=== PATIENT | male | born 1960 ===

== ENCOUNTER 2019-02-25 20:09 | Observation (INO) | payer MEDICAID, OTHER ==
[2019-02-25 20:10] VITALS: BMI 27.4
--- NOTE | 2019-02-25 20:38 | ED PDOC ---
Arrival/HPI - General Chief Complaint: Syncope Time Seen by Provider: 02/25/19 20:10 Historian: Patient - History of Present Illness Narrative History of Present Illness (Text): 02/25/19 20:15 A 58 year old male, whose past medical history includes hypertension, presents to the emergency department following a syncopal event while at a constitution party at home earlier tonight. Patient states he does not remember what happened other than feeling dizzy and waking up on the floor shortly thereafter. Patient reports he hit his head and is complaining of a headache post event. Patient denies any neck pain, back pain, or any other complaints. Patient reports no history of any chest pain or shortness of breath. PMD: Melanie Araujo Time/Duration: 4-6 hours Symptom Onset: Sudden Symptom Course: Unchanged Activities at Onset: Light Context: Home Past Medical History - Provider Review Nursing Documentation Reviewed: Yes - Infectious Disease Hx of Infectious Diseases: None - Tetanus Immunization Tetanus Immunization: Unknown - Cardiac Hx Hypertension: Yes - Pulmonary Hx Asthma: Yes - Musculoskeletal/Rheumatological Hx Falls: No - Genitourinary/Gynecological Other/Comment: HERNIA REPAIR - Psychiatric Hx Depression: No Hx Emotional Abuse: No Hx Physical Abuse: No Hx Substance Use: No - Past Surgical History Past Surgical History: No Previous - Suicidal Assessment Feels Threatened In Home Enviroment: No Family/Social History - Physician Review Nursing Documentation Reviewed: Yes Family/Social History: No Known Family HX Smoking Status: Never Smoked Hx Alcohol Use: Yes Hx Substance Use: No Allergies/Home Meds Allergies/Adverse Reactions: Allergies apple Allergy (Verified 02/26/19 00:20) ITCHING Home Medications: Home Meds Medication Instructions Recorded Confirmed Lisinopril [Zestril] 1 tab PO DAILY 02/25/19 02/25/19 Review of Systems - Physician Review All systems were reviewed & negative as marked: Yes - Review of Systems Respiratory: absent: SOB Cardiovascular: absent: Chest Pain Musculoskeletal: absent: Back Pain, Neck Pain Neurological: Headache Physical Exam Vital Signs Reviewed: Yes Vital Signs Temp Pulse Resp BP Pulse Ox 02/25/19 20:16 98.4 F 86 18 145/76 97 Temperature: Afebrile Blood Pressure: Normal Pulse: Regular Respiratory Rate: Normal Appearance: Positive for: Well-Appearing Mental Status: Positive for: Alert and Oriented X 3 Finger Stick Blood Glucose: 106 - Systems Exam Head: Present: Atraumatic, Normocephalic, Contusion (contusion to left parietal and left forehead region) Pupils: Present: PERRL Extroacular Muscles: Present: EOMI Conjunctiva: Present: Normal Mouth: Present: Moist Mucous Membranes Respiratory/Chest: Present: Clear to Auscultation, Good Air Exchange. No: Respiratory Distress, Accessory Muscle Use Cardiovascular: Present: Regular Rate and Rhythm, Normal S1, S2. No: Murmurs Abdomen: No: Tenderness, Distention, Peritoneal Signs Back: Present: Normal Inspection. No: Midline Tenderness Upper Extremity: Present: Normal Inspection. No: Cyanosis, Edema Lower Extremity: Present: Normal Inspection. No: Edema Neurological: Present: GCS=15, CN II-XII Intact, Speech Normal Skin: Present: Warm, Dry, Normal Color. No: Rashes Psychiatric: Present: Alert, Oriented x 3, Normal Insight, Normal Concentration Medical Decision Making ED Course and Treatment: 02/25/19 20:15 Impression: 58 year old male presenting to the emergency room following a syncopal event. Plan: -- Head CT without contrast -- Labs -- CBC -- COAGs -- Chest X-ray -- Reassess and disposition Prior Visits: Notes and results from previous visits were reviewed. Progress Notes: 02/25/19 20:35 EKG: Ordered, reviewed, and independently interpreted the EKG. Rate : 90 BPM Rhythm : NSR Interpretation : No ST-segment elevations or depressions. 02/25/19 22:16 Reviewed radiology, Chest X-ray shows no acute processes. CT Head: BRAIN: No CT evidence for acute intracranial abnormality. No evidence for acute territorial infarction. No evidence for acute intracranial hemorrhage. No midline shift or mass effect. VENTRICLES: No hydrocephalus. ORBITS: The orbits are unremarkable. SINUSES AND MASTOIDS: The paranasal sinuses and mastoid air cells are clear. BONES: No fracture. SOFT TISSUES: 1.2 cm fat density lesion in the left frontal scalp on series 2, image 18. This most likely represents lipoma or similar. Please correlate clinically. IMPRESSION: 1. 1.2 cm fat density lesion in the left frontal scalp on series 2, image 18. This most likely represents lipoma or similar. Please correlate clinically. 2. No CT evidence for acute intracranial abnormality. Electronically signed on Feb 25, 2019 9:48:15 PM EDT by: Elian Diaz M.D., M.B.A., Certified By [employer] Trained MRI and CT Specialist 02/25/19 22:26 Case discussed with medical office representative workers' compensation mediator, who is aware and agrees with plan. 02/25/19 22:[address] Ochoa, who is aware and agrees with plan. Accepts pt in to hospitalist service. Pt will go to Telemetry observation for syncope. - RAD Interpretation Radiology Orders: 02/25/19 20:26 CHEST PORTABLE [RAD] Stat 02/25/19 20:27 HEAD W/O CONTRAST [CT] Stat - Scribe Statement The provider has reviewed the documentation as recorded by the Yuko Rodas All medical record entries made by the Scribe were at my direction and personally dictated by me. I have reviewed the chart and agree that the record accurately reflects my personal performance of the history, physical exam, medical decision making, and the department course for this patient. I have also personally directed, reviewed, and agree with the discharge instructions and disposition.\ Disposition/Present on Arrival - Present on Arrival Any Indicators Present on Arrival: No History of DVT/PE: No History of Uncontrolled Diabetes: No Urinary Catheter: No History of Decub. Ulcer: No History Surgical Site Infection Following: None - Disposition Have Diagnosis and Disposition been Completed?: Yes Diagnosis: Syncope Disposition: HOSPITALIZED Disposition Time: 22:30 Condition: STABLE
[2019-02-25 20:39] LABS: HEMOGLOBIN 16.2 g/dL (14.0-18.0); MEAN CELL VOLUME 86.3 fl (80.0-105.0); MEAN CORPUSCULAR HEMOGLOBIN 29.6 pg (25.0-35.0); MEAN CORPUSCULAR HGB CONC 34.3 g/dl (31.0-37.0); MEAN PLATELET VOLUME 9.9 fl (7.0-11.0); RBC 5.47 10^6/uL (3.5-6.1); WHITE BLOOD COUNT 8.5 10^3/uL (4.5-11.0)
[2019-02-25 20:43] LABS: ALB/GLOB RATIO 1.4 (1.1-1.8); ALBUMIN 4.4 g/dL (3.0-4.8); BLOOD UREA NITROGEN 18 mg/dL (7-21); CALCIUM 9.1 mg/dL (8.4-10.5); GFR NON-AFRICAN AMERICAN > 60
[2019-02-25 20:52] LABS: INR 1.01; PARTIAL THROMBOPLASTIN TIME 32.9 Seconds (26.9-38.3); PROTHROMBIN TIME 11.2 SECONDS (9.4-12.5)
[2019-02-25 20:55] LABS: TROPONIN I < 0.01 ng/mL
[2019-02-25 20:59] LABS: ALT/SGPT 55 U/L (7-56); AST/SGOT 41 U/L (17-59)
--- NOTE | 2019-02-25 23:53 | CP.PCM.HP ---
<AnilaAyshamarissa - Last Filed: 02/26/19 05:27> History of Present Illness - History of Present Illness History of Present Illness: PGY1 Medicine History and Physical Exam Note for Dr. Ochoa Patient is a 58-year-old M with PMH HTN who presents to [facility] after having experienced a syncopial event during dinner earlier this evening. Patient reports he was sitting at the dinner table with his family, laughing with such intensity, that it caused him to "pass out." Patient's at bedside states that the Patient was shaking, his eyes rolled back, and then he woke up within seconds. Patient says he felt normal following the event. Patient denies feeling anything unusual (dizzy, lightheaded, palpitations, and/or chest pain) prior to syncopizing. After waking up, the Patient denies any tongue biting, bowel/bladder loss, muscular pain, drowsiness, and/or dizziness. Patient denies any previous events, however he admits to laughing so hard to the point where he "turns red in the face." PMH: HTN, hernia, hospitalization due to PNA PSH: Neck surgery (lipoma removal?) Social Hx: ETOH 2 beers on occasion (socially); Denies current/previous tobacco; Denies recreational drugs Family Hx: Sister: heart murmur Allergies: NKDA Medications: Lisinopril 5mg po daily PMD: Dr. Cornell Present on Admission - Present on Admission Any Indicators Present on Admission: No History of DVT/PE: No History of Uncontrolled Diabetes: No Urinary Catheter: No Decubitus Ulcer Present: No Review of Systems - Review of Systems All systems: reviewed and no additional remarkable complaints except (as per HPI) Past Patient History - Infectious Disease Hx of Infectious Diseases: None - Tetanus Immunizations Tetanus Immunization: Unknown - Past Social History Smoking Status: Never Smoked - CARDIAC Hx Hypertension: Yes - PULMONARY Hx Asthma: Yes - MUSCULOSKELETAL/RHEUMATOLOGICAL Hx Falls: No - GENITOURINARY/GYNECOLOGICAL Other/Comment: HERNIA REPAIR - PSYCHIATRIC Hx Depression: No Hx Emotional Abuse: No Hx Physical Abuse: No Hx Substance Use: No Meds Allergies/Adverse Reactions: Allergies Allergy/AdvReac Type Severity Reaction Status Date / Time apple Allergy ITCHING Verified 02/26/19 00:20 Physical Exam - Constitutional Appears: Non-toxic, No Acute Distress - Head Exam Head Exam: ATRAUMATIC, NORMAL INSPECTION, NORMOCEPHALIC - Eye Exam Eye Exam: EOMI, Normal appearance, PERRL Pupil Exam: NORMAL ACCOMODATION - ENT Exam ENT Exam: Mucous Membranes Moist, Normal Exam - Neck Exam Neck exam: Positive for: Normal Inspection. Negative for: Lymphadenopathy, Tenderness, Thyromegaly - Respiratory Exam Respiratory Exam: Clear to Auscultation Bilateral, NORMAL BREATHING PATTERN. absent: Accessory Muscle Use, Prolonged Expiratory Phase, Rales, Rhonchi, Wheezes, Respiratory Distress - Cardiovascular Exam Cardiovascular Exam: REGULAR RHYTHM, +S1, +S2. absent: Bradycardia, Tachycardia, Diastolic murmur, Gallop, Irregular Rhythm, Systolic Murmur - GI/Abdominal Exam GI & Abdominal Exam: Normal Bowel Sounds, Soft. absent: Tenderness - Extremities Exam Extremities exam: Positive for: full ROM, normal inspection. Negative for: joint swelling, pedal edema, tenderness - Neurological Exam Neurological exam: Alert, CN II-XII Intact, Oriented x3 - Psychiatric Exam Psychiatric exam: Normal Affect, Normal Mood - Skin Skin Exam: Dry, Intact, Normal Color, Warm Results - Vital Signs Recent Vital Signs: Last Vital Signs Temp 98.4 F 02/25/19 20:16 Pulse 78 02/25/19 22:34 Resp 18 02/25/19 22:34 BP 119/88 02/25/19 22:34 Pulse Ox 95 02/25/19 22:34 - Labs Result Diagrams: 02/25/19 20:15 02/25/19 20:15 Labs: Laboratory Results - last 24 hr 02/25/19 02/25/19 02/25/19 20:15 20:15 20:15 WBC 8.5 RBC 5.47 Hgb 16.2 Hct 47.2 MCV 86.3 MCH 29.6 MCHC 34.3 RDW 13.0 Plt Count 380 MPV 9.9 PT 11.2 INR 1.01 APTT 32.9 Sodium 138 Potassium 4.1 Chloride 101 Carbon Dioxide 27 Anion Gap 15 BUN 18 Creatinine 1.1 Est GFR ( Amer) > 60 Est GFR (Non-Af Amer) > 60 POC Glucose (mg/dL) Random Glucose 94 Calcium 9.1 Total Bilirubin 0.4 AST 41 ALT 55 Alkaline Phosphatase 72 Lactate Dehydrogenase 489 Total Creatine Kinase 225 Troponin I < 0.01 Total Protein 7.5 Albumin 4.4 Globulin 3.2 Albumin/Globulin Ratio 1.4 02/25/19 20:17 WBC RBC Hgb Hct MCV MCH MCHC RDW Plt Count MPV PT INR APTT Sodium Potassium Chloride Carbon Dioxide Anion Gap BUN Creatinine Est GFR ( Amer) Est GFR (Non-Af Amer) POC Glucose (mg/dL) 106 Random Glucose Calcium Total Bilirubin AST ALT Alkaline Phosphatase Lactate Dehydrogenase Total Creatine Kinase Troponin I Total Protein Albumin Globulin Albumin/Globulin Ratio Assessment & Plan - Assessment and Plan (Free Text) Assessment: S/P Syncope - Likely 2/2 vaso-vagal - Cardiology consulted; Dr. Jenkins - CT head without contrast: negative for acute intracranial abnormalities - Troponin negative x1 - F/U Serial troponin - EKG: NSR 90 bpm - Chest X-ray shows no acute processes - F/U ECHO - F/U UDS - F/U Folate, vitamin B12, Hemoglobin A1C, CMP, Mg, Phos, TSH, CBC - Neuro checks Q4 - Fall precautions - Seizure precautions - Orthostatic vitals - PT/OT eval and treat - Monitor HTN - Hold home meds at this time - Normotensive PPx: - DVT: Lovenox - GI: not indicated at this time Patient seen and case discussed with Dr. Gabriela High PGY1 <Vijaya Ochoa - Last Filed: 02/26/19 06:16> Results - Vital Signs Recent Vital Signs: Last Vital Signs Temp 98.2 F 02/25/19 23:44 Pulse 84 02/25/19 23:44 Resp 18 02/25/19 23:44 BP 120/71 02/25/19 23:44 Pulse Ox 95 02/25/19 23:44 - Labs Result Diagrams: 02/25/19 20:15 02/25/19 20:15 Labs: Laboratory Results - last 24 hr 02/25/19 02/25/19 02/25/19 20:15 20:15 20:15 WBC 8.5 RBC 5.47 Hgb 16.2 Hct 47.2 MCV 86.3 MCH 29.6 MCHC 34.3 RDW 13.0 Plt Count 380 MPV 9.9 PT 11.2 INR 1.01 APTT 32.9 Sodium 138 Potassium 4.1 Chloride 101 Carbon Dioxide 27 Anion Gap 15 BUN 18 Creatinine 1.1 Est GFR ( Amer) > 60 Est GFR (Non-Af Amer) > 60 POC Glucose (mg/dL) Random Glucose 94 Calcium 9.1 Total Bilirubin 0.4 AST 41 ALT 55 Alkaline Phosphatase 72 Lactate Dehydrogenase 489 Total Creatine Kinase 225 Troponin I < 0.01 Total Protein 7.5 Albumin 4.4 Globulin 3.2 Albumin/Globulin Ratio 1.4 02/25/19 02/26/19 20:17 02:00 WBC RBC Hgb Hct MCV MCH MCHC RDW Plt Count MPV PT INR APTT Sodium Potassium Chloride Carbon Dioxide Anion Gap BUN Creatinine Est GFR ( Amer) Est GFR (Non-Af Amer) POC Glucose (mg/dL) 106 Random Glucose Calcium Total Bilirubin AST ALT Alkaline Phosphatase Lactate Dehydrogenase Total Creatine Kinase Troponin I < 0.01 Total Protein Albumin Globulin Albumin/Globulin Ratio Attending/Attestation - Attestation I have personally seen and examined this patient.: Yes I have fully participated in the care of the patient.: Yes I have reviewed all pertinent clinical information: Yes Notes (Text): 02/26/19 06:16 Seen and examined. discussed with resident. A&P as above.
[2019-02-26 06:58] LABS: ALB/GLOB RATIO 1.4 (1.1-1.8); ALBUMIN 3.8 g/dL (3.0-4.8); ALT/SGPT 52 U/L (7-56); AST/SGOT 36 U/L (17-59); BLOOD UREA NITROGEN 20 mg/dL (7-21); CALCIUM 8.5 mg/dL (8.4-10.5); GFR NON-AFRICAN AMERICAN > 60
[2019-02-26 07:07] LABS: BASO # 0.02 K/mm3 (0.0-2.0); BASO % 0.3 % (0.0-3.0); EOS # 0.3 (0.0-0.7); EOS % 3.5 % (1.5-5.0); HEMOGLOBIN 14.8 g/dL (14.0-18.0); LYMPH # 2.1 (1.2-3.4); LYMPH % 29.1 % (22.0-35.0); MEAN CELL VOLUME 86.7 fl (80.0-105.0); MEAN CORPUSCULAR HGB CONC 33.5 g/dl (31.0-37.0); MEAN PLATELET VOLUME 9.9 fl (7.0-11.0); MONO # 0.8 (0.1-0.6); RBC 5.1 10^6/uL (3.5-6.1); RED CELL DISTRIBUTION WIDTH 13.2 % (11.5-14.5); WHITE BLOOD COUNT 7.2 10^3/uL (4.5-11.0)
--- NOTE | 2019-02-26 08:19 | CT ---
Date of service: 02/25/2019 PROCEDURE: CT HEAD WITHOUT CONTRAST. HISTORY: syncope COMPARISON: None available. TECHNIQUE: Axial computed tomography images were obtained through the head/brain without intravenous contrast. Radiation dose: Total exam DLP = 976.25 mGy-cm. This CT exam was performed using one or more of the following dose reduction techniques: Automated exposure control, adjustment of the mA and/or kV according to patient size, and/or use of iterative reconstruction technique. FINDINGS: HEMORRHAGE: No intracranial hemorrhage. BRAIN: No mass effect or edema. No atrophy or chronic microvascular ischemic changes. VENTRICLES: Unremarkable. No hydrocephalus. CALVARIUM: Unremarkable. PARANASAL SINUSES: Unremarkable as visualized. No significant inflammatory changes. MASTOID AIR CELLS: Unremarkable as visualized. No inflammatory changes. OTHER FINDINGS: The report concurs with the preliminary [facility] report IMPRESSION: Normal CT of the Head.
--- NOTE | 2019-02-26 09:11 | CARD ---
APPROVED REPORT Date of service: 02/25/2019 EKG Measurement Heart [id number] <Conclusion> Normal sinus rhythm Normal Electrocardiogram
[2019-02-26] MEDS: Enoxaparin 40 mg Syringe SC SCH (09:30)
[2019-02-26 09:40] LABS: BARBITURATES, UR NEGATIVE (NEGATIVE); BENZODIAZEPINES, UR NEGATIVE (NEGATIVE); OPIATES, UR NEGATIVE (NEGATIVE); PHENCYCLIDINE, UR NEGATIVE (NEGATIVE)
--- NOTE | 2019-02-26 10:29 | RAD ---
Date of service: 02/25/2019 HISTORY: syncope COMPARISON: No prior. TECHNIQUE: 1 view obtained. FINDINGS: LUNGS: No active pulmonary disease. PLEURA: No significant pleural effusion identified, no pneumothorax apparent. CARDIOVASCULAR: No aortic atherosclerotic calcification present. Normal cardiac size. No pulmonary vascular congestion. OSSEOUS STRUCTURES: No significant abnormalities. VISUALIZED UPPER ABDOMEN: Normal. OTHER FINDINGS: None. IMPRESSION: No active disease.
--- NOTE | 2019-02-26 11:23 | RAD ---
Date of service: 02/26/2019 HISTORY: syncope, cardiomegaly COMPARISON: 02/25/2019 TECHNIQUE: Chest PA and lateral views FINDINGS: LUNGS: There is atelectasis at the right lung base. There is elevation of the right hemidiaphragm. PLEURA: No significant pleural effusion identified. No pneumothorax apparent. CARDIOVASCULAR: No aortic atherosclerotic calcification present. Normal cardiac size. No pulmonary vascular congestion. OSSEOUS STRUCTURES: No significant abnormalities. VISUALIZED UPPER ABDOMEN: Normal. OTHER FINDINGS: None. IMPRESSION: There is atelectasis at the right lung base. There is elevation of the right hemidiaphragm.
[2019-02-26 12:09] LABS: FOLATE 8.2 ng/mL
--- NOTE | 2019-02-26 12:47 | CP.PCM.PN ---
Subjective - Date & Time of Evaluation Date of Evaluation: 02/26/19 Time of Evaluation: 12:46 - Subjective Subjective: PGY-1 Medicine progress note for Dr. Mar Patient was seen and examined at bedside. No acute events overnight. He denies fevers, chills, shortness of breath, chest pain, abdominal pain, nausea, vomiting, diarrhea, or any other symptoms. Objective - Vital Signs/Intake and Output Vital Signs (last 24 hours): Temp Pulse Resp BP Pulse Ox 97.8 F 64 18 133/84 97 02/26/19 08:16 02/26/19 08:16 02/26/19 08:16 02/26/19 08:16 02/26/19 08:16 - Medications Medications: Current Medications Acetaminophen (Tylenol 325mg Tab) 650 mg PO Q6H PRN PRN Reason: Pain, moderate (4-7) Last Admin: 02/26/19 12:22 Dose: 650 mg Enoxaparin Sodium (Lovenox) 40 mg SC DAILY VIPIN; Protocol Last Admin: 02/26/19 09:30 Dose: 40 mg - Labs Labs: 02/26/19 06:00 02/26/19 06:00 PT 11.2 SECONDS (9.4-12.5) 02/25/19 20:15 INR 1.01 02/25/19 20:15 APTT 32.9 Seconds (26.9-38.3) 02/25/19 20:15 - Additional Findings Additional findings: - Constitutional Appears: Non-toxic, No Acute Distress - Head Exam Head Exam: ATRAUMATIC, NORMAL INSPECTION, NORMOCEPHALIC - Eye Exam Eye Exam: EOMI, Normal appearance, PERRL Pupil Exam: NORMAL ACCOMODATION - ENT Exam ENT Exam: Mucous Membranes Moist, Normal Exam - Neck Exam Neck exam: Positive for: Normal Inspection. Negative for: Lymphadenopathy, Tenderness, Thyromegaly - Respiratory Exam Respiratory Exam: Clear to Auscultation Bilateral, NORMAL BREATHING PATTERN. absent: Accessory Muscle Use, Prolonged Expiratory Phase, Rales, Rhonchi, Wheezes, Respiratory Distress - Cardiovascular Exam Cardiovascular Exam: REGULAR RHYTHM, +S1, +S2. absent: Bradycardia, Tachycardia, Diastolic murmur, Gallop, Irregular Rhythm, Systolic Murmur - GI/Abdominal Exam GI & Abdominal Exam: Normal Bowel Sounds, Soft. absent: Tenderness - Extremities Exam Extremities exam: Positive for: full ROM, normal inspection. Negative for: joint swelling, pedal edema, tenderness - Neurological Exam Neurological exam: Alert, CN II-XII Intact, Oriented x3 - Muscle strength 5/5 and sensations intact in all extremities. No pronator drift. No tremors noted. - Psychiatric Exam Psychiatric exam: Normal Affect, Normal Mood - Skin Skin Exam: Dry, Intact, Normal Color, Warm Assessment and Plan - Assessment and Plan (Free Text) Assessment: Patient is a 58 year old male with a past medical history of hypertension admitted for syncope. Plan: Syncope - Likely vaso-vagal, rule out seizures - Cardiology consulted, Dr. Jenkins - CT head without contrast: negative for acute intracranial abnormalities - Chest X-ray shows no acute processes - EKG: NSR 90 bpm - Follow up Echo - Troponins negative - TSH, folate, vit B12: WNL - UDS negative - Neuro checks Q4 - Fall precautions - Seizure precautions - Orthostatic vitals - PT evaluation Possible seizure episode - Neurology consulted, Dr. Wells - CT head without contrast: negative for acute intracranial abnormalities - Follow up EEG - Follow up brain MRI - Seizure precautions - Neuro checks Q4 HTN - Patient is normotensive - Hold home meds at this time Prophylaxis: - DVT: Lovenox 40mg SC QD Patient seen and case discussed with attending, Dr. Mar. Richar Camejo, PGY-1
--- NOTE | 2019-02-26 14:54 | MRI ---
Date of service: 02/26/2019 PROCEDURE: MRI BRAIN WITHOUT CONTRAST HISTORY: Possible seizure COMPARISON: None available. TECHNIQUE: Axial diffusion weighted imaging was performed. The patient refused any further scanning FINDINGS: HEMORRHAGE: None DWI: No evidence of an acute or early subacute infarction. BRAIN PARENCHYMA: No mass effect or edema. No atrophy or chronic microvascular ischemic changes. VENTRICLES: Unremarkable. No hydrocephalus. CRANIUM: Unremarkable. ORBITS: Grossly unremarkable. PARANASAL SINUSES/MASTOIDS: Clear VASCULAR SYSTEM: Skull base flow voids intact. OTHER FINDINGS: None. IMPRESSION: Study limited to diffusion images only. No evidence of acute infarct
--- NOTE | 2019-02-26 16:40 | CP.PCM.CON ---
History of Present Illness - History of Present Illness History of Present Illness: Neurology Consultation Note: Consult requested by Dr. Stewart Mr. Clark Aguirre is a 58-year-old man with a past medical history of HTN, who was at dinner last night, was laughing uncontrollably, and syncopized. He lost consciousness for about 30 seconds, was back to normal afterward without an episode of confusion or somnolence. There was no urinary/bowel incontinence, tongue biting or rhythmic shaking. His states that his eyes rolled back into his head and he was twitching. The patient has not had any episodes since and is currently at his usual baseline with no complaints or deficits. MRI brain did not show any concerning findings. Review of Systems - Constitutional Constitutional: As Per HPI - EENT Eyes: absent: As Per HPI, Blind Spots, Blurred Vision, Change in Vision, Decreased Night Vision, Diplopia, Discharge, Dry Eye, Exophthalmos, Floaters, Irritation, Itchy Eyes, Loss of Peripheral Vision, Pain, Photophobia, Requires Corrective Lenses, Sees Flashes, Spots in Vision, Tunnel Vision, Other Visual Disturbances, Loss of Vision, Other Ears: absent: As Per HPI, Decreased Hearing, Ear Discharge, Ear Pain, Tinnitus, Abnormal Hearing, Disequilibrium, Dizziness, Other Nose/Mouth/Throat: absent: As Per HPI, Epistaxis, Nasal Congestion, Nasal Disc harge, Nasal Obstruction, Nasal Trauma, Nose Pain, Post Nasal Drip, Sinus Pain, Sinus Pressure, Bleeding Gums, Change in Voice, Dental Pain, Dry Mouth, Dysphagia, Halitosis, Hoarsness, Lip Swelling, Mouth Lesions, Mouth Pain, Odynophagia, Sore Throat, Throat Swelling, Tongue Swelling, Facial Pain, Neck Pain, Neck Mass, Other - Cardiovascular Cardiovascular: absent: As Per HPI, Acrocyanosis, Chest Pain, Chest Pain at Rest, Chest Pain with Activity, Claudication, Diaphoresis, Dyspnea, Dyspnea on Exertion, Edema, Irregular Heart Rhythm, Pain Radiating to Arm/Neck/Jaw, Leg Edema, Leg Ulcers, Lightheadedness, Orthopnea, Palpitations, Paroxysmal Nocturnal Dyspnea, Pedal Edema, Radiating Pain, Rapid Heart Rate, Slow Heart Rate, Syncope, Other - Respiratory Respiratory: absent: As Per HPI, Cough, Dyspnea, Hemoptysis, Dyspnea on Exertion, Wheezing, Snoring, Stridor, Pain on Inspiration, Chest Congestion, Excessive Mucous Production, Change in Mucous Color, Pain with Coughing, Other - Gastrointestinal Gastrointestinal: absent: As Per HPI, Abdominal Pain, Belching, Bloating, Change in Bowel Habits, Change in Stool Character, Coffee Ground Emesis, Constipation, Cramping, Diarrhea, Dyspepsia, Dysphagia, Early Satiety, Excessive Flatus, Fecal Incontinence, Heartburn, Hematemesis, Hematochezia, Loose Stools, Melena, Nausea, Odynophagia, Temesmus, Vomiting, Other - Genitourinary Genitourinary: absent: As Per HPI, Change in Urinary Stream, Difficulty Urinating, Dysuria, Flank Pain, Hematuria, Pyuria, Nocturia, Urinary Incontinence, Urinary Frequency, Urinary Hesitance, Urinary Urgency, Voiding Freq/Small Amts, Freq UTI, Hx Renal/Bladder Calculi, Hx /Renal Surgery, Bladder Distension, Other - Musculoskeletal Musculoskeletal: absent: As Per HPI, Abnormal Gait, Arthralgias, Atrophy, Back Pain, Deformity, Joint Swelling, Limited Range of Motion, Loss of Height, Muscle Cramps, Muscle Weakness, Myalgias, Neck Pain, Numbness, Radiating Pain into Limb, Stiffness, Tingling, Other - Neurological Neurological: As Per HPI - Psychiatric Psychiatric: absent: As Per HPI, Abnormal Sleep Pattern, Anhedonia, Anxiety, Auditory Hallucinations, Behavioral Changes, Change in Appetite, Change in Libido, Confusion, Depression, Difficulty Concentrating, Hallucinations, Homicidal Ideation, Hopelessness, Irritability, Memory Loss, Mood Swings, Panic Attacks, Paranoia, Suicidal Ideation, Visual Hallucinations, Tactile Hallucin ations, Other - Endocrine Endocrine: absent: As Per HPI, Change in Body Appearance, Change in Libido, Cold Intolorance, Deepening of Voice, Excessive Sweating, Fatigue, Flushing, Heat Intolorance, Increase in Ring/Shoe/Hat Size, Palpitations, Polydipsia, Polyph agia, Polyuria, Other Past Patient History - Infectious Disease Hx of Infectious Diseases: None - Tetanus Immunizations Tetanus Immunization: Unknown - Past Social History Smoking Status: Never Smoked - CARDIAC Hx Hypertension: Yes - PULMONARY Hx Asthma: Yes - MUSCULOSKELETAL/RHEUMATOLOGICAL Hx Falls: No - GENITOURINARY/GYNECOLOGICAL Other/Comment: HERNIA REPAIR - PSYCHIATRIC Hx Depression: No Hx Emotional Abuse: No Hx Physical Abuse: No Hx Substance Use: No Meds Allergies/Adverse Reactions: Allergies Allergy/AdvReac Type Severity Reaction Status Date / Time apple Allergy ITCHING Verified 02/26/19 00:20 - Medications Medications: Current Medications Acetaminophen (Tylenol 325mg Tab) 650 mg PO Q6H PRN PRN Reason: Pain, moderate (4-7) Last Admin: 02/26/19 12:22 Dose: 650 mg Enoxaparin Sodium (Lovenox) 40 mg SC DAILY VIPIN; Protocol Last Admin: 02/26/19 09:30 Dose: 40 mg Physical Exam - Constitutional Appears: Well - Head Exam Head Exam: ATRAUMATIC, NORMAL INSPECTION, NORMOCEPHALIC - Eye Exam Eye Exam: EOMI, Normal appearance, PERRL Pupil Exam: NORMAL ACCOMODATION, PERRL - ENT Exam ENT Exam: Mucous Membranes Moist, Normal Exam - Neck Exam Neck exam: Positive for: Normal Inspection - Respiratory Exam Respiratory Exam: Clear to Auscultation Bilateral, NORMAL BREATHING PATTERN - Cardiovascular Exam Cardiovascular Exam: REGULAR RHYTHM, +S1, +S2 - GI/Abdominal Exam GI & Abdominal Exam: Normal Bowel Sounds, Soft. absent: Tenderness - Extremities Exam Extremities exam: Positive for: normal inspection - Back Exam Back exam: NORMAL INSPECTION - Neurological Exam Neurological exam: Alert, CN II-XII Intact, Normal Gait, Oriented x3, Reflexes Normal - Psychiatric Exam Psychiatric exam: Normal Affect, Normal Mood - Skin Skin Exam: Dry, Intact, Normal Color, Warm Results - Vital Signs Recent Vital Signs: Last Vital Signs Temp 98.6 F 02/26/19 16:14 Pulse 63 02/26/19 16:14 Resp 18 02/26/19 16:14 BP 123/86 02/26/19 16:14 Pulse Ox 98 02/26/19 16:14 - Labs Result Diagrams: 02/26/19 06:00 02/26/19 06:00 Labs: Laboratory Results - last 24 hr 02/25/19 02/25/19 02/25/19 20:15 20:15 20:15 WBC 8.5 RBC 5.47 Hgb 16.2 Hct 47.2 MCV 86.3 MCH 29.6 MCHC 34.3 RDW 13.0 Plt Count 380 MPV 9.9 Neut % (Auto) Lymph % (Auto) [place] % (Auto) Eos % (Auto) Baso % (Auto) Lymph # (Auto) [place] # (Auto) Eos # (Auto) Baso # (Auto) Absolute Neuts (auto) PT 11.2 INR 1.01 APTT 32.9 Sodium 138 Potassium 4.1 Chloride 101 Carbon Dioxide 27 Anion Gap 15 BUN 18 Creatinine 1.1 Est GFR ( Amer) > 60 Est GFR (Non-Af Amer) > 60 POC Glucose (mg/dL) Random Glucose 94 Hemoglobin A1c Calcium 9.1 Phosphorus Magnesium Total Bilirubin 0.4 AST 41 ALT 55 Alkaline Phosphatase 72 Lactate Dehydrogenase 489 Total Creatine Kinase 225 Troponin I < 0.01 Total Protein 7.5 Albumin 4.4 Globulin 3.2 Albumin/Globulin Ratio 1.4 Vitamin B12 Folate TSH 3rd Generation Urine Opiates Screen Urine Methadone Screen Ur Barbiturates Screen Ur Phencyclidine Scrn Ur Amphetamines Screen U Benzodiazepines Scrn U Oth Cocaine Metabols U Cannabinoids Screen Alcohol, Quantitative 02/25/19 02/26/19 02/26/19 20:17 02:00 06:00 WBC RBC Hgb Hct MCV MCH MCHC RDW Plt Count MPV Neut % (Auto) Lymph % (Auto) [place] % (Auto) Eos % (Auto) Baso % (Auto) Lymph # (Auto) [place] # (Auto) Eos # (Auto) Baso # (Auto) Absolute Neuts (auto) PT INR APTT Sodium Potassium Chloride Carbon Dioxide Anion Gap BUN Creatinine Est GFR ( Amer) Est GFR (Non-Af Amer) POC Glucose (mg/dL) 106 Random Glucose Hemoglobin A1c 5.7 Calcium Phosphorus Magnesium Total Bilirubin AST ALT Alkaline Phosphatase Lactate Dehydrogenase Total Creatine Kinase Troponin I < 0.01 Total Protein Albumin Globulin Albumin/Globulin Ratio Vitamin B12 Folate TSH 3rd Generation Urine Opiates Screen Urine Methadone Screen Ur Barbiturates Screen Ur Phencyclidine Scrn Ur Amphetamines Screen U Benzodiazepines Scrn U Oth Cocaine Metabols U Cannabinoids Screen Alcohol, Quantitative 02/26/19 02/26/19 02/26/19 06:00 06:00 06:00 WBC 7.2 RBC 5.10 Hgb 14.8 Hct 44.2 MCV 86.7 MCH 29.0 MCHC 33.5 RDW 13.2 Plt Count 317 MPV 9.9 Neut % (Auto) 56.1 Lymph % (Auto) 29.1 [place] % (Auto) 11.0 H Eos % (Auto) 3.5 Baso % (Auto) 0.3 Lymph # (Auto) 2.1 [place] # (Auto) 0.8 H Eos # (Auto) 0.3 Baso # (Auto) 0.02 Absolute Neuts (auto) 4.02 PT INR APTT Sodium 139 Potassium 3.9 Chloride 102 Carbon Dioxide 29 Anion Gap 12 BUN 20 Creatinine 0.9 Est GFR ( Amer) > 60 Est GFR (Non-Af Amer) > 60 POC Glucose (mg/dL) Random Glucose 90 Hemoglobin A1c Calcium 8.5 Phosphorus 4.0 Magnesium 2.1 Total Bilirubin 0.5 AST 36 ALT 52 Alkaline Phosphatase 66 Lactate Dehydrogenase Total Creatine Kinase Troponin I Total Protein 6.5 Albumin 3.8 Globulin 2.7 Albumin/Globulin Ratio 1.4 Vitamin B12 361 Folate 8.2 TSH 3rd Generation 4.20 Urine Opiates Screen Urine Methadone Screen Ur Barbiturates Screen Ur Phencyclidine Scrn Ur Amphetamines Screen U Benzodiazepines Scrn U Oth Cocaine Metabols U Cannabinoids Screen Alcohol, Quantitative 02/26/19 02/26/19 02/26/19 08:20 08:20 08:45 WBC RBC Hgb Hct MCV MCH MCHC RDW Plt Count MPV Neut % (Auto) Lymph % (Auto) [place] % (Auto) Eos % (Auto) Baso % (Auto) Lymph # (Auto) [place] # (Auto) Eos # (Auto) Baso # (Auto) Absolute Neuts (auto) PT INR APTT Sodium Potassium Chloride Carbon Dioxide Anion Gap BUN Creatinine Est GFR ( Amer) Est GFR (Non-Af Amer) POC Glucose (mg/dL) Random Glucose Hemoglobin A1c Calcium Phosphorus Magnesium Total Bilirubin AST ALT Alkaline Phosphatase Lactate Dehydrogenase Total Creatine Kinase Troponin I < 0.01 Total Protein Albumin Globulin Albumin/Globulin Ratio Vitamin B12 Folate TSH 3rd Generation Urine Opiates Screen Negative Urine Methadone Screen Negative Ur Barbiturates Screen Negative Ur Phencyclidine Scrn Negative Ur Amphetamines Screen Negative U Benzodiazepines Scrn Negative U Oth Cocaine Metabols Negative U Cannabinoids Screen Negative Alcohol, Quantitative < 10 Assessment & Plan (1) Syncope Assessment and Plan: Likely vaso-vagal syncope considering the events and the history. MRI is not concerning. No seizure activity. No focal findings. No further recommendations from a neurological perspective. Thank you. Status: Acute
--- NOTE | 2019-02-26 23:38 | CON ---
DATE: 02/26/2019 COVERING FOR: Moe Jenkins MD REASON FOR CONSULTATION: Syncope, rule out seizure. BRIEF CLINICAL HISTORY: A 58-year-old male with past medical history of hypertension, disability because of back injury, history of cervical stenosis, status post cervical surgery in the past, who was with the family and making jokes and laughing. Suddenly, the patient passed out. The daughter was there who acknowledges that the patient had seizure while he fell at the floor. She noticed eyes rolled up and has a seizure type of activity. Daughter has a son who used to get seizure in the young age, for that she recall as probably seizure, but denies any tongue bite or incontinence of urine. Also, the patient denies any chest pain, shortness of breath or dyspnea on exertion, but sometimes she feels dyspnea on exertion, but no chest pain. PAST MEDICAL HISTORY: Significant for hypertension and left inguinal hernia. PAST SURGICAL HISTORY: States that nerve pinch at the back and removal of the mass in the also fusion, possibly spinal fusion, possibly cervical vertebral fusion. SOCIAL HISTORY: Denies any smoking, but use to drink 2 can every 2 weeks on the weekend. FAMILY HISTORY: Nothing significant. CURRENT MEDICATION: The patient at home was taking some blood pressure medication, possible lisinopril, dose unknown. REVIEW OF SYSTEMS: As per HPI. PHYSICAL EXAMINATION GENERAL: Height of the patient 5 feet 4 inches. Weight of the patient 160 pounds. Body mass index 27.7 kg/m2. VITAL SIGNS: Temperature afebrile. Heart rate 64 and blood pressure 133/84. HEENT: PERRLA. Extraocular muscles intact. NECK: Supple. No carotid bruits or thyromegaly. CHEST: Clear to auscultation. HEART: S1 and S2, regular. ABDOMEN: Soft. EXTREMITIES: Clubbing and cyanosis negative. LABORATORY DATA: Blood workup; WBC 7.8, hemoglobin 14.8, hematocrit 44.2 and platelet count 317. Chemistry showed sodium 113, potassium 3.9, chloride 102, carbon dioxide 29, anion gap of 12, BUN 20, creatinine 0.9, troponin 0.01 negative. EKG shows normal sinus, no acute ST-T changes noted. IMPRESSION: A 58-year-old male with past medical history significant for hypertension who had a syncopal episode after having laughing, daughter states that it was seizure type of activity, rule out arrhythmia. RECOMMENDATIONS: Monitoring telemetry, so far, no evidence of acute MD, EKG is pretty benign. Suggest echo to rule out any significant structural heart disease. Discussed with Dr. Mar probably neuro evaluation to rule out seizure. If the patient has no seizure activity, consider tilt-table EP study. We will transfer care tomorrow to Dr. Moe Jenkins. Further recommendation depending upon hospital course. We will follow with you. Marcus Liang MD
[2019-02-27 07:34] LABS: BASO # 0.02 K/mm3 (0.0-2.0); BASO % 0.3 % (0.0-3.0); EOS # 0.3 (0.0-0.7); EOS % 3.7 % (1.5-5.0); HEMOGLOBIN 15.3 g/dL (14.0-18.0); LYMPH # 2.3 (1.2-3.4); LYMPH % 31.6 % (22.0-35.0); MEAN CELL VOLUME 87.8 fl (80.0-105.0); MEAN CORPUSCULAR HEMOGLOBIN 28.8 pg (25.0-35.0); MEAN CORPUSCULAR HGB CONC 32.8 g/dl (31.0-37.0); MEAN PLATELET VOLUME 9.7 fl (7.0-11.0); MONO # 0.5 (0.1-0.6); RBC 5.31 10^6/uL (3.5-6.1); RED CELL DISTRIBUTION WIDTH 13.3 % (11.5-14.5); WHITE BLOOD COUNT 7.1 10^3/uL (4.5-11.0)
[2019-02-27 08:01] LABS: ALB/GLOB RATIO 1.4 (1.1-1.8); ALBUMIN 3.9 g/dL (3.0-4.8); ALT/SGPT 53 U/L (7-56); AST/SGOT 39 U/L (17-59); BLOOD UREA NITROGEN 19 mg/dL (7-21); CALCIUM 8.6 mg/dL (8.4-10.5); GFR NON-AFRICAN AMERICAN > 60
[2019-02-27 08:39] VITALS: RESP 20; TEMP 97.5; O2SAT 96
[2019-02-27] MEDS: Enoxaparin 40 mg Syringe SC SCH (09:16)
[2019-02-27 10:48] VITALS: BP 129/83
--- NOTE | 2019-02-27 13:42 | PCM.EEG ---
Electroencephalogram Report - Electroencephalogram Report Procedure Date: 02/26/19 Medication: Lisinopril Interpretation: Technical Information: This was a 16 -channel EEG, 1-channel EKG routine EEG performed using an [employer] machine. Electrodes were applied using the 10/20 international placement system. Start; 17;57 End; 18;43 Total 46 minutes. Clinical Information: syncope Findings; During resting wakefulness there was a symmetric posterior dominant rhythm at 8.5-9.5 Hz, 30-50 uV, which was reactive to eye opening and closing. Drowsiness (18;21) was associated with fragmentation of the posterior dominant rhythm and with slow roving eye movements. Light sleep (18;32) was recorded and was characterized by central vertex waves, sleep spindles, and bilateral theta slowing. Hyperventilation was not performed. Photic stimulation was performed and there were no changes on the record. Focal abnormality; none ECG was associated with a normal sinus rhythm. Impression: This is a normal awake drowsy and sleep electroencephalogram.
--- NOTE | 2019-02-27 14:50 | PN ---
DATE: 02/27/2019 SUBJECTIVE: The patient is feeling well. No shortness of breath, no chest pain. PHYSICAL EXAMINATION: VITAL SIGNS: Blood pressure 129/83, heart rate is in the 70s. NECK: Negative JVD. LUNGS: Without rales. HEART: S1, S2. EXTREMITIES: Without edema. LABORATORY DATA: Unremarkable. EKG is unremarkable. Echocardiogram is pending. IMPRESSION: 1. Syncope. 2. History of hypertension. PLAN: Given these findings, so further there had been no arrhythmias noted on telemetry. Awaiting the results of the echo. Moe Jenkins MD
[2019-02-27 15:29] VITALS: PULSE 85
--- NOTE | 2019-02-27 15:55 | CP.PCM.DIS ---
<BrysonTre - Last Filed: 02/27/19 15:47> Provider - Provider Date of Admission: 02/25/19 22:26 Attending physician: Sam Mcneal MD Primary care physician: Melanie Cornell DO Consults: 02/25/19 23:25 Physician Consult Routine Comment: Consulting Provider: Moe Jenkins Consulting Physician: Moe Jenkins Reason for Consult: Syncope 02/26/19 13:01 Physician Consult Routine Comment: Consulting Provider: Robert Wells Consulting Physician: Robert Wells Reason for Consult: Rule out seizure Time Spent in preparation of Discharge (in minutes): 35 Hospital Course - Lab Results Lab Results: Most Recent Lab Values WBC 7.1 10^3/uL (4.5-11.0) 02/27/19 05:30 RBC 5.31 10^6/uL (3.5-6.1) 02/27/19 05:30 Hgb 15.3 g/dL (14.0-18.0) 02/27/19 05:30 Hct 46.6 % (42.0-52.0) 02/27/19 05:30 MCV 87.8 fl (80.0-105.0) 02/27/19 05:30 MCH 28.8 pg (25.0-35.0) 02/27/19 05:30 MCHC 32.8 g/dl (31.0-37.0) 02/27/19 05:30 RDW 13.3 % (11.5-14.5) 02/27/19 05:30 Plt Count 320 10^3/uL (120.0-450.0) 02/27/19 05:30 MPV 9.7 fl (7.0-11.0) 02/27/19 05:30 Neut % (Auto) 57.4 % (50.0-68.0) 02/27/19 05:30 Lymph % (Auto) 31.6 % (22.0-35.0) 02/27/19 05:30 [place] % (Auto) 7.0 % (1.0-6.0) H 02/27/19 05:30 Eos % (Auto) 3.7 % (1.5-5.0) 02/27/19 05:30 Baso % (Auto) 0.3 % (0.0-3.0) 02/27/19 05:30 Lymph # (Auto) 2.3 (1.2-3.4) 02/27/19 05:30 [place] # (Auto) 0.5 (0.1-0.6) 02/27/19 05:30 Eos # (Auto) 0.3 (0.0-0.7) 02/27/19 05:30 Baso # (Auto) 0.02 K/mm3 (0.0-2.0) 02/27/19 05:30 Absolute Neuts (auto) 4.08 (1.4-6.5) 02/27/19 05:30 PT 11.2 SECONDS (9.4-12.5) 02/25/19 20:15 INR 1.01 02/25/19 20:15 APTT 32.9 Seconds (26.9-38.3) 02/25/19 20:15 Sodium 140 mmol/L (132-148) 02/27/19 05:30 Potassium 3.9 mmol/L (3.6-5.0) 02/27/19 05:30 Chloride 101 mmol/L (98-107) 02/27/19 05:30 Carbon Dioxide 32 mmol/L (21-33) 02/27/19 05:30 Anion Gap 10 (10-20) 02/27/19 05:30 BUN 19 mg/dL (7-21) 02/27/19 05:30 Creatinine 1.0 mg/dl (0.8-1.5) 02/27/19 05:30 Est GFR ( Amer) > 60 02/27/19 05:30 Est GFR (Non-Af Amer) > 60 02/27/19 05:30 POC Glucose (mg/dL) 106 mg/dL (65-110) 02/25/19 20:17 Random Glucose 82 mg/dL (70-110) 02/27/19 05:30 Hemoglobin A1c 5.7 % (4.2-6.5) 02/26/19 06:00 Calcium 8.6 mg/dL (8.4-10.5) 02/27/19 05:30 Phosphorus 4.0 mg/dL (2.5-4.5) 02/26/19 06:00 Magnesium 2.1 mg/dL (1.7-2.2) 02/26/19 06:00 Total Bilirubin 0.6 mg/dL (0.2-1.3) 02/27/19 05:30 AST 39 U/L (17-59) 02/27/19 05:30 ALT 53 U/L (7-56) 02/27/19 05:30 Alkaline Phosphatase 74 U/L (38-126) 02/27/19 05:30 Lactate Dehydrogenase 489 U/L (333-699) 02/25/19 20:15 Total Creatine Kinase 225 U/L (35-230) 02/25/19 20:15 Troponin I < 0.01 ng/mL 02/26/19 08:20 Total Protein 6.7 g/dL (5.8-8.3) 02/27/19 05:30 Albumin 3.9 g/dL (3.0-4.8) 02/27/19 05:30 Globulin 2.9 gm/dL 02/27/19 05:30 Albumin/Globulin Ratio 1.4 (1.1-1.8) 02/27/19 05:30 Vitamin B12 361 pg/mL (239-931) 02/26/19 06:00 Folate 8.2 ng/mL 02/26/19 06:00 TSH 3rd Generation 4.20 mIU/mL (0.46-4.68) 02/26/19 06:00 Urine Opiates Screen Negative (NEGATIVE) 02/26/19 08:45 Urine Methadone Screen Negative (NEGATIVE) 02/26/19 08:45 Ur Barbiturates Screen Negative (NEGATIVE) 02/26/19 08:45 Ur Phencyclidine Scrn Negative (NEGATIVE) 02/26/19 08:45 Ur Amphetamines Screen Negative (NEGATIVE) 02/26/19 08:45 U Benzodiazepines Scrn Negative (NEGATIVE) 02/26/19 08:45 U Oth Cocaine Metabols Negative (NEGATIVE) 02/26/19 08:45 U Cannabinoids Screen Negative (NEGATIVE) 02/26/19 08:45 Alcohol, Quantitative < 10 mg/dL (0-10) 02/26/19 08:20 - Hospital Course Hospital Course: Tre Massey, PGY1 Discharge Summary for Dr. Mcneal Patient is a 58-year-old Nepali Speaking M with PMH HTN, inguinal hernia repair (2016), and asthma who presented to [facility] after having experienced a syncopal event during dinner earlier in the evening. Patient reported he was sitting at the dinner table with his family, laughing with great intensity, that it caused him to "pass out." This was witnessed and confirmed by family member () at bedside. She said he had some associated shaking, his eyes rolled back. This incident happened for approximately one minute. EKG was NSR with no acute ST or T wave changes. CT Head was done and negative for acute changes. Neurology and Cardiology was placed on consult. Patient admitted for vasovagal syncope. Utox, EtOH level were negative. MRI also showed no acute infarct. Troponins were negative x3. Neuro agreed with diagnosis that the event was likely related to vasovagal syncope. As a result, no further recs from neuro and no seizure like activity was noted. EEG was also done and the reading showed that it was negative for seizure activity. Cardiology also evaluated patient and confirmed that patient's echocardiogram was normal. During hospital course, patient's symptoms resolved. Upon reviewing all labs, vitals, and imaging patient is hemodynamically stable for discharge. As outpatient, he can go for tilt table testing at [facility] as recommended by cardiology. Otherwise, no changes to medications. Patient is safe for discharge to home. Discharge Exam - Head Exam Head Exam: ATRAUMATIC, NORMAL INSPECTION, NORMOCEPHALIC - Eye Exam Eye Exam: EOMI, Normal appearance Pupil Exam: NORMAL ACCOMODATION - ENT Exam ENT Exam: Mucous Membranes Moist - Respiratory Exam Respiratory Exam: Clear to PA & Lateral. absent: Accessory Muscle Use, Rales, Rhonchi, Wheezes - Cardiovascular Exam Cardiovascular Exam: RRR, +S1, +S2 - GI/Abdominal Exam GI & Abdominal Exam: Normal Bowel Sounds. absent: Firm, Guarding, Rebound, Rigid - Extremities Exam Extremities exam: normal capillary refill, normal inspection, pedal pulses present - Neurological Exam Neurological exam: Alert, CN II-XII Intact, Oriented x3 - Psychiatric Exam Psychiatric exam: Normal Affect, Normal Mood - Skin Skin Exam: Dry, Intact, Normal Color, Warm Discharge Plan - Follow Up Plan Condition: STABLE Disposition: HOME/ ROUTINE Patient education suggested?: Yes Instructions: Syncope (Fainting) (DC), Vasovagal Response (DC) Additional Instructions: - Please follow up with your Primary Care Doctor (Dr. Cornell) within 3-4 days of discharge. - Your Echocardiogram and EEG studies were normal. The EEG study did not show any evidence of seizures. - You may resume all your home medications as prescribed. - You may follow up at [facility] for a tilt table study. - Please return to the nearest emergency department if your symptoms worsen or reoccur. Referrals: Robert Wells MD [Staff Provider] - Melanie Cornell DO [Primary Care Provider] - <Sam Mcneal - Last Filed: 02/27/19 17:46> Provider - Provider Date of Admission: 02/25/19 22:26 Attending physician: Sam Mcneal MD Primary care physician: Melanie Cornell DO Consults: 02/25/19 23:25 Physician Consult Routine Comment: Consulting Provider: Moe Jenkins Consulting Physician: Moe Jenkins Reason for Consult: Syncope 02/26/19 13:01 Physician Consult Routine Comment: Consulting Provider: Robert Wells Consulting Physician: Robert Wells Reason for Consult: Rule out seizure Hospital Course - Lab Results Lab Results: Most Recent Lab Values WBC 7.1 10^3/uL (4.5-11.0) 02/27/19 05:30 RBC 5.31 10^6/uL (3.5-6.1) 02/27/19 05:30 Hgb 15.3 g/dL (14.0-18.0) 02/27/19 05:30 Hct 46.6 % (42.0-52.0) 02/27/19 05:30 MCV 87.8 fl (80.0-105.0) 02/27/19 05:30 MCH 28.8 pg (25.0-35.0) 02/27/19 05:30 MCHC 32.8 g/dl (31.0-37.0) 02/27/19 05:30 RDW 13.3 % (11.5-14.5) 02/27/19 05:30 Plt Count 320 10^3/uL (120.0-450.0) 02/27/19 05:30 MPV 9.7 fl (7.0-11.0) 02/27/19 05:30 Neut % (Auto) 57.4 % (50.0-68.0) 02/27/19 05:30 Lymph % (Auto) 31.6 % (22.0-35.0) 02/27/19 05:30 [place] % (Auto) 7.0 % (1.0-6.0) H 02/27/19 05:30 Eos % (Auto) 3.7 % (1.5-5.0) 02/27/19 05:30 Baso % (Auto) 0.3 % (0.0-3.0) 02/27/19 05:30 Lymph # (Auto) 2.3 (1.2-3.4) 02/27/19 05:30 [place] # (Auto) 0.5 (0.1-0.6) 02/27/19 05:30 Eos # (Auto) 0.3 (0.0-0.7) 02/27/19 05:30 Baso # (Auto) 0.02 K/mm3 (0.0-2.0) 02/27/19 05:30 Absolute Neuts (auto) 4.08 (1.4-6.5) 02/27/19 05:30 PT 11.2 SECONDS (9.4-12.5) 02/25/19 20:15 INR 1.01 02/25/19 20:15 APTT 32.9 Seconds (26.9-38.3) 02/25/19 20:15 Sodium 140 mmol/L (132-148) 02/27/19 05:30 Potassium 3.9 mmol/L (3.6-5.0) 02/27/19 05:30 Chloride 101 mmol/L (98-107) 02/27/19 05:30 Carbon Dioxide 32 mmol/L (21-33) 02/27/19 05:30 Anion Gap 10 (10-20) 02/27/19 05:30 BUN 19 mg/dL (7-21) 02/27/19 05:30 Creatinine 1.0 mg/dl (0.8-1.5) 02/27/19 05:30 Est GFR ( Amer) > 60 02/27/19 05:30 Est GFR (Non-Af Amer) > 60 02/27/19 05:30 POC Glucose (mg/dL) 106 mg/dL (65-110) 02/25/19 20:17 Random Glucose 82 mg/dL (70-110) 02/27/19 05:30 Hemoglobin A1c 5.7 % (4.2-6.5) 02/26/19 06:00 Calcium 8.6 mg/dL (8.4-10.5) 02/27/19 05:30 Phosphorus 4.0 mg/dL (2.5-4.5) 02/26/19 06:00 Magnesium 2.1 mg/dL (1.7-2.2) 02/26/19 06:00 Total Bilirubin 0.6 mg/dL (0.2-1.3) 02/27/19 05:30 AST 39 U/L (17-59) 02/27/19 05:30 ALT 53 U/L (7-56) 02/27/19 05:30 Alkaline Phosphatase 74 U/L (38-126) 02/27/19 05:30 Lactate Dehydrogenase 489 U/L (333-699) 02/25/19 20:15 Total Creatine Kinase 225 U/L (35-230) 02/25/19 20:15 Troponin I < 0.01 ng/mL 02/26/19 08:20 Total Protein 6.7 g/dL (5.8-8.3) 02/27/19 05:30 Albumin 3.9 g/dL (3.0-4.8) 02/27/19 05:30 Globulin 2.9 gm/dL 02/27/19 05:30 Albumin/Globulin Ratio 1.4 (1.1-1.8) 02/27/19 05:30 Vitamin B12 361 pg/mL (239-931) 02/26/19 06:00 Folate 8.2 ng/mL 02/26/19 06:00 TSH 3rd Generation 4.20 mIU/mL (0.46-4.68) 02/26/19 06:00 Urine Opiates Screen Negative (NEGATIVE) 02/26/19 08:45 Urine Methadone Screen Negative (NEGATIVE) 02/26/19 08:45 Ur Barbiturates Screen Negative (NEGATIVE) 02/26/19 08:45 Ur Phencyclidine Scrn Negative (NEGATIVE) 02/26/19 08:45 Ur Amphetamines Screen Negative (NEGATIVE) 02/26/19 08:45 U Benzodiazepines Scrn Negative (NEGATIVE) 02/26/19 08:45 U Oth Cocaine Metabols Negative (NEGATIVE) 02/26/19 08:45 U Cannabinoids Screen Negative (NEGATIVE) 02/26/19 08:45 Alcohol, Quantitative < 10 mg/dL (0-10) 02/26/19 08:20 Attending/Attestation - Attestation I have personally seen and examined this patient.: Yes I have fully participated in the care of the patient.: Yes I have reviewed all pertinent clinical information, including history, physical exam and plan: Yes Notes (Text): 02/27/19 17:39 58 year old male with past medical history of hypertension and asthma who presented after syncopal episode witnessed by family. CT head and MRI brain were negative for acute findings. Telemonitoring has been uneventful and serial cardiac enzymes were negative. EEG was negative as well. He was seen by cardiology who recommended outpatient tilt table test. He was also seen by neurology without further recommendations. Echocardiogram showed preserved EF and diastolic dysfunction. Patient is discharged home to follow up with pmd. Follow up with cardiology for outpatient stress test. Sam Mcneal MD Hospitalist.
--- NOTE | 2019-02-27 17:14 | CARD ---
APPROVED REPORT Date of service: 02/27/2019 EXAM: Two-dimensional and M-mode echocardiogram with Doppler and color Doppler. INDICATION Syncope 2D DIMENSIONS Left Atrium (2D)3.0 (1.6-4.0cm)IVSd1.2 (0.7-1.1cm) LVDd4.2 (3.9-5.9cm)PWd1.0 (0.7-1.1cm) LVDs3.1 (2.5-4.0cm)FS (%) 25.7 % LVEF (%)51.0 (>50%) M-Mode DIMENSIONS Aortic Root3.00 (2.2-3.7cm)Aortic Cusp Exc.1.60 (1.5-2.0cm) Aortic Valve AoV Peak Kobhpeof357.0cm/Brigette Peak GR.5mmHg Mitral Valve MV E Trzhiksh21.6cm/sMV A Crooirll03.0cm/sE/A ratio0.8 TDI E/Lateral E'0.0E/Medial E'0.0 Tricuspid Valve TR Peak [id number]/sRAP [id number] Peak Gr.12mmHg [id number] LEFT VENTRICLE The left ventricle is normal size. There is normal left ventricular wall thickness. The left ventricular function is normal.EF-55% There is normal LV segmental wall motion. Transmitral Doppler flow pattern is Grade III-reversible restrictive diastolic dysfunction. No left ventricle thrombus noted on this study. There is no ventricular septal defect visualized. There is no left ventricular aneurysm. There is no mass noted in the left ventricle. RIGHT VENTRICLE The right ventricle is normal size. There is normal right ventricular wall thickness. The right ventricular systolic function is normal. ATRIA The left atrium size is normal. The right atrium size is normal. The interatrial septum is intact with no evidence for an atrial septal defect. AORTIC VALVE The aortic valve is moderately sclerotic. Trivial AR. There is no aortic valvular stenosis. There is no aortic valvular vegetation. MITRAL VALVE The mitral valve is thickened but opens well. Mitral regurgitation is trivial. There is no mitral valve stenosis. There is no evidence of mitral valve prolapse. TRICUSPID VALVE The tricuspid valve leaflets are thickened , but open well. There is trace tricuspid regurgitation.RVSP-22 mmof hg. There is no tricuspid valve stenosis. There is no tricuspid valve prolapse or vegetation. PULMONIC VALVE The pulmonary valve is normal in structure. There is no pulmonic valvular regurgitation. There is no pulmonic valvular stenosis. GREAT VESSELS The aortic root is normal in size. The ascending aorta is normal in size. The pulmonary artery is normal. The IVC is normal in size and collapses >50% with inspiration. PERICARDIAL EFFUSION There is no pleural effusion. There is no pericardial effusion. <Conclusion> Normal chamber Size. EF-55%. Trivial MR/AR Trace TR, RVSP-22 mmof Hg. No vegetation or thrombus noted.
== END 2019-02-27 15:37 | disposition home or self-care (01) ==
LOC: ED 20:09 → ERH 22:26 → 3RNO 23:46
PROVIDERS: ADMIT Internal Medicine; ATTEND Internal Medicine
DX: R55 Syncope and collapse (principal); I10 Essential (primary) hypertension; J45.909 Unspecified asthma, uncomplicated
CPT/HCPCS: 36415; 70450; 70551; 71045; 71046; 80053; 80320; 80324; 80345; 80346; 80349; 80353; 80358; 80361; 82550; 82607; 82746; 82948; 83036; 83615; 83735; 83992; 84100; 84443; 84484; 85025; 85027; 85610; 85730; 93005; 93306; 95812; 96372; 97161; 99285; G0378; G8978; G8979; G8980; J1650